=== PATIENT | female | born 1955 | race Caucasian/White ===

== ENCOUNTER → 2021-10-02 | Outpatient (CLI) | payer BC, OTHER ==
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
[2021-10-02 11:48] VITALS: BP 124/79; PULSE 70; RESP 18; TEMP 98.7
== END ==
LOC: PNWHC3 10:42
DX: M47.22 Other spondylosis with radiculopathy, cervical region (principal); M79.18 Myalgia, other site; Z87.828 Personal history of other (healed) physical injury and trauma
CPT/HCPCS: 99211